=== PATIENT | male | born 1970 | race Caucasian/White ===

== ENCOUNTER 2017-09-23 20:34 | Emergency (ER) | payer BC, OTHER ==
[~2017-09-23] VITALS: Ht 170.2 cm; Wt 105.9 kg
[~2017-09-23 20:34] MED LIST: IBUP600T44 PO; OXYC-57 PO
[2017-09-23 20:36] VITALS: TEMP 37.3; Ht 170.2 cm; Wt 105.9 kg
[2017-09-23] MEDS ORDERED: SODIUM CHLORIDE 0.9% 1000ML 1,000 ML IV STA (20:49)
[2017-09-23] MEDS ORDERED: PIPERACILLIN/TAZOBACTAM 4.5 GM/100ML D5W IV STA (20:49)
[2017-09-23] MEDS ORDERED: SODIUM CHLORIDE 0.9% IV STA (20:49)
[2017-09-23] MEDS ORDERED: DAPTOMYCIN IV STA (20:49)
--- NOTE | 2017-09-23 20:53 | EMERGENCY ROOM VISIT NOTE ---
History Report prepared by Alejandra: Gabriel Cortés Under the Supervision of: Dr. Seth Paredes M.D. First contact with patient: 20:39 Chief Complaint: FOOT PAIN Stated Complaint: SWOLLEN LEFT FOOT, FEVER CHILLS History of Present Illness The patient is a 47 year old male who presents to the Emergency Room with complaints of worsening swelling to the left foot that was first noticed on , 3 days ago. The patient notes that the foot is painful to touch and is worsened by applying weight/walking on the foot. He also mentions that he developed a fever about 1 hour ago. The patient's notes that they were on vacation over the weekend in [facility]. They did go into the water in the [place] to do some "crabbing." He is not a diabetic. He does have a history of Gout but denies this feeling like his previous episodes of Gout. Source of History: patient, spouse/significant other Onset: 3 days ago Position: foot (left) Quality: other (swelling) Timing: worsening Modifying Factors (Worsening): other (applying weight/walking) Associated Symptoms: + fevers Review of Systems See HPI for pertinent positives & negatives. A total of 10 systems reviewed and were otherwise negative. Past Medical & Surgical Hx of Gout Social History Smoking Status: Never Smoker Marital Status: Housing Status: lives with family, lives with significant other Occupation Status: employed Current/Historical Medications Scheduled Amoxicillin & Pot Clavulanate (Augmentin 875-125 mg), 1 TAB PO BID Doxycycline Monohydrate (Monodox), 100 MG PO BID Allergies Coded Allergies: No Known Allergies (Unverified , 05/08/11) Physical Exam Vital Signs Date Time Temp Pulse Resp B/P (MAP) Pulse Ox O2 Delivery O2 Flow Rate FiO2 09/23/17 22:59 107 18 132/81 97 09/23/17 22:42 107 132/81 97 Room Air 09/23/17 20:36 37.3 124 18 157/102 95 Room Air Physical Exam GENERAL: Awake, alert, well-appearing, in no acute distress HENT: Normocephalic, atraumatic. Oropharynx unremarkable. EYES: Normal conjunctiva. Sclera non-icteric. NECK: Supple. No nuchal rigidity. FROM. No JVD. RESPIRATORY: Clear to auscultation. CARDIAC: Regular rate, normal rhythm. Extremities warm and well perfused. Pulses equal. ABDOMEN: Soft, non-distended. No tenderness to palpation. No rebound or guarding. No masses. RECTAL: Deferred. MUSCULOSKELETAL: Chest examination reveals no tenderness. The back is symmetrical on inspection without obvious abnormality. There is no CVA tenderness to palpation. No joint edema. LOWER EXTREMITIES: The left leg is swollen at the foot with evidence of cellulitis extending midway up the left lower extremity. NEURO: Normal sensorium. No sensory or motor deficits noted. SKIN: No rash or jaundice noted. Medical Decision & Procedures ER Provider Diagnostic Interpretation: Radiology results as stated below per my review and radiologist interpretation: LEFT LOWER EXTREMITY VENOUS DOPPLER CLINICAL HISTORY: Left lower extremity swelling. COMPARISON STUDY: No previous studies for comparison. TECHNIQUE: Sonography of the deep venous system of the left lower extremity was performed. Compression and augmentation were evaluated. FINDINGS: The left common femoral, superficial femoral and popliteal veins were compressible. Augmentation was normal. Flow was shown within the deep calf vessels. IMPRESSION: No evidence of deep venous thrombus within the left lower extremity. Electronically signed by: Cristobal Little M.D. 09/23/2017 10:21 PM Dictated Date/Time: 09/23/2017 10:21 PM Laboratory Results 09/23/17 21:09 Red Blood Count 4.79, Mean Corpuscular Volume 90.0, Mean Corpuscular Hemoglobin 30.3, Mean Corpuscular Hemoglobin Concent 33.6, Mean Platelet Volume 11.0, Neutrophils (%) (Auto) 78.3, Lymphocytes (%) (Auto) 10.4, Monocytes (%) (Auto) 7.7, Eosinophils (%) (Auto) 2.5, Basophils (%) (Auto) 0.8, Neutrophils # (Auto) 5.70, Lymphocytes # (Auto) 0.76, Monocytes # (Auto) 0.56, Eosinophils # (Auto) 0.18, Basophils # (Auto) 0.06 09/23/17 21:09 Test 09/23/17 21:09 White Blood Count 7.28 K/uL (4.8-10.8) Red Blood Count 4.79 M/uL (4.7-6.1) Hemoglobin 14.5 g/dL (14.0-18.0) Hematocrit 43.1 % (42-52) Mean Corpuscular Volume 90.0 fL (80-100) Mean Corpuscular Hemoglobin 30.3 pg (25-34) Mean Corpuscular Hemoglobin Concent 33.6 g/dl (32-36) Platelet Count 159 K/uL (130-400) Mean Platelet Volume 11.0 fL (7.4-10.4) Neutrophils (%) (Auto) 78.3 % Lymphocytes (%) (Auto) 10.4 % Monocytes (%) (Auto) 7.7 % Eosinophils (%) (Auto) 2.5 % Basophils (%) (Auto) 0.8 % Neutrophils # (Auto) 5.70 K/uL (1.4-6.5) Lymphocytes # (Auto) 0.76 K/uL (1.2-3.4) Monocytes # (Auto) 0.56 K/uL (0.11-0.59) Eosinophils # (Auto) 0.18 K/uL (0-0.5) Basophils # (Auto) 0.06 K/uL (0-0.2) RDW Standard Deviation 42.8 fL (36.4-46.3) RDW Coefficient of Variation 13.0 % (11.5-14.5) Immature Granulocyte % (Auto) 0.3 % Immature Granulocyte # (Auto) 0.02 K/uL (0.00-0.02) Anion Gap 7.0 mmol/L (3-11) Est Creatinine Clear Calc Drug Dose 89.6 ml/min Estimated GFR () 84.9 Estimated GFR (Non- 73.3 BUN/Creatinine Ratio 15.1 (10-20) Calcium Level 8.8 mg/dl (8.5-10.1) Total Bilirubin 0.4 mg/dl (0.2-1) Direct Bilirubin 0.2 mg/dl (0-0.2) Aspartate Amino Transf (AST/SGOT) 16 U/L (15-37) Alanine Aminotransferase (ALT/SGPT) 20 U/L (12-78) Alkaline Phosphatase 72 U/L (45-117) Total Protein 7.5 gm/dl (6.4-8.2) Albumin 3.7 gm/dl (3.4-5.0) Labs reviewed by ED physician. Medications Administered Medications (Trade) Dose Ordered Sig/Alma Route Start Time Stop Time Status Last Admin Dose Admin Piperacillin Sod/ Tazobactam Sod (Zosyn Iv) 4.5 gm NOW STAT IV 09/23/17 20:49 09/23/17 20:54 DC 09/23/17 21:49 4.5 GM Daptomycin 636 mg/ Sodium Chloride 62.72 ml @ 100 mls/hr NOW STAT IV 09/23/17 20:49 09/23/17 21:26 DC 09/23/17 21:49 100 MLS/HR Sodium Chloride 1,000 ml @ 999 mls/hr Q1H1M STAT IV 09/23/17 20:49 09/23/17 21:49 DC 09/23/17 21:41 999 MLS/HR ED Course 2042: Past medical records reviewed. The patient was evaluated in room B4B. A complete history and physical examination was performed. 2244: Upon reexamination the patient is resting in bed. I discussed results and treatment plan with the patient. He verbalizes agreement and understanding. The patient is ready for discharge. Medical Decision Prior records reviewed and summarized as above. Triage Nursing notes reviewed. Differential diagnosis: Etiologies such as cellulitis, abscess, MRSA infection, DVT, necrotizing fasciitis, dermatitis, drug eruption, as well as others were entertained. This is a 47-year-old male who presents emergency department complaining of lower leg swelling. The patient reports [place] was [place]. For this reason I am concerned about vibrio. A wound culture was obtained. The patient was started on Zosyn as well as daptomycin however he does not have an elevation in his white blood cell count and is afebrile here. He is tachycardic however this improved with normal saline bolus. A wound culture was obtained as well as blood cultures. The patient is feeling better after antibiotic initiation and is wishing to go home. His ultrasound does not show any evidence of a DVT. I did recommend compression stockings I will place the patient on Augmentin and doxycycline pending culture results. Patient and are in agreement with the treatment plan. Medication Reconcilliation Current Medication List: was personally reviewed by me Blood Pressure Screening Patient's blood pressure: Elevated blood pressure Blood pressure disposition: Referred to PCP Impression Primary Impression: Cellulitis Scribe Attestation The scribe's documentation has been prepared under my direction and personally reviewed by me in its entirety. I confirm that the note above accurately reflects all work, treatment, procedures, and medical decision making performed by me. Departure Information Dispostion Home / Self-Care Prescriptions Doxycycline Monohydrate (Monodox) 100 Mg Cap 100 MG PO BID for 10 Days, #20 CAP Prov: Seth Paredes MD 09/23/17 Amoxicillin & Pot Clavulanate (Augmentin 875-125 mg) 1 Tab Tab 1 TAB PO BID for 10 Days, #20 TAB Prov: Seth Paredes MD 09/23/17 Referrals Griffin Mosley M.D. (PCP) Forms HOME CARE DOCUMENTATION FORM, IMPORTANT VISIT INFORMATION Patient Instructions My [facility] Additional Instructions Culture results available in 48 hours Need to return if you develop fevers or severe leg pain You have been examined and treated today on an emergency basis only. This is not a substitute for, or an effort to provide, complete comprehensive medical care. It is impossible to recognize and treat all injuries or illnesses in a single emergency department visit. It is therefore important that you follow up closely with your PCP. Call as soon as possible for an appointment. Thank you for your time and consideration. I look forward to speaking with you again soon. Please don't hesitate to call us if you have any questions. Problem Qualifiers Primary Impression: Cellulitis Site of cellulitis: extremity Site of cellulitis of extremity: lower extremity Laterality: left Qualified Codes: L03.116 - Cellulitis of left lower limb
[2017-09-23 21:22] LABS: BASO % 0.8 %; BASO ABS # 0.06 K/uL (0-0.2); EOS % 2.5 %; EOS ABS # 0.18 K/uL (0-0.5); HEMATOCRIT 43.1 % (42-52); HEMOGLOBIN 14.5 g/dL (14.0-18.0); IG# 0.02 K/uL (0.00-0.02); LYMPH % 10.4 %; LYMPH ABS # 0.76 K/uL (1.2-3.4); MEAN CORPUSCULAR HEMOGLOBIN 30.3 pg (25-34); MEAN CORPUSCULAR HGB CONC 33.6 g/dl (32-36); MONO % 7.7 %; MONO ABS # 0.56 K/uL (0.11-0.59); NEUT % 78.3 %; PLATELET COUNT 159 K/uL (130-400); RED CELL DISTRIBUTION WIDTH SD 42.8 fL (36.4-46.3); WHITE BLOOD COUNT 7.28 K/uL (4.8-10.8)
[2017-09-23 21:41] LABS: ALBUMIN 3.7 gm/dl (3.4-5.0); CALCIUM 8.8 mg/dl (8.5-10.1); CREATININE 1.17 mg/dl (0.60-1.40); POTASSIUM 4.3 mmol/L (3.5-5.1); TOTAL PROTEIN 7.5 gm/dl (6.4-8.2)
--- NOTE | 2017-09-23 22:23 | DIAGNOSTIC IMAGING REPORT ---
LEFT LOWER EXTREMITY VENOUS DOPPLER CLINICAL HISTORY: Left lower extremity swelling. COMPARISON STUDY: No previous studies for comparison. TECHNIQUE: Sonography of the deep venous system of the left lower extremity was performed. Compression and augmentation were evaluated. FINDINGS: The left common femoral, superficial femoral and popliteal veins were compressible. Augmentation was normal. Flow was shown within the deep calf vessels. IMPRESSION: No evidence of deep venous thrombus within the left lower extremity. Electronically signed by: Cristobal Little M.D. 09/23/2017 10:21 PM Dictated Date/Time: 09/23/2017 10:21 PM
[2017-09-23] MEDS ORDERED: DOXY100C76 PO (22:46)
[2017-09-23] MEDS ORDERED: AMOX875T PO (22:46)
[2017-09-23 22:59] VITALS: BP 132/81; PULSE 107; O2SAT 97
--- NOTE | 2017-09-24 12:31 | Pharmacy Progress Note ---
ED Pharmacist Culture FollowUp Date of Service: Sep 24, 2017. Charge nurse phoned with foot wound culture results- verbally stating beta group A strep per lab. Patient given prescription for augmentin which should cover beta group A strep. Patient also on doxycyline. Results preliminary will wait for final.
== END 2017-09-23 22:57 | disposition home or self-care (01) ==
LOC: C.EDB 20:35
DX: L03.116 Cellulitis of left lower limb (principal)